=== PATIENT | male | born 1965 | race Caucasian/White ===

== ENCOUNTER 2016-08-12 21:08 | Observation (INO) | payer OTHER ==
[~2016-08-12] VITALS: Ht 175.3 cm; Wt 115.0 kg
[~2016-08-12 21:08] MED LIST: ASPI81TA3 PO; ATOR20TA38 PO; CARV12.579 PO; CEPH500C PO; DAPA10TA PO; FAMO-95 PO; GABA300C PO; GLIM4TAB PO; IPRA4AER INHALATION; LANT3I SC; LAS20 PO; LIRA0.6P SQ; LISI10TA2 PO; METF-480 PO; Nicotine (14 Mg/24 Hr) TRANSDERM; PRED10TA PO; UDROBDM PO
[2016-08-12 22:46] LABS: MODE ROOM AIR; MetHgb Venous 0.2 %; Sample Type Blood venous; Venous COHb 3.1 %; Venous Total Hemglobin 17.6 g/dl
[2016-08-12 22:47] LABS: ADD SCAN DIFF NO
[2016-08-12 22:49] LABS: BASOPHIL # 0.1 10^3/ul (0.0-0.1); BASOPHILS % 0.5 % (0.0-2.0); EOSINOPHILS # 0.2 10^3/ul (0.0-0.5); EOSINOPHILS % 2.1 % (0.0-7.0); HEMATOCRIT 51.7 % (42.0-52.0); HEMOGLOBIN 16.6 g/dl (14.0-18.0); LYMPHOCYTES # 2.3 10^3/ul (0.8-2.9); LYMPHOCYTES % 21.2 % (15.0-51.0); MEAN CORPUSCULAR HEMOGLOBIN 27.2 pg (29.0-33.0); MEAN CORPUSCULAR HGB CONC 32.1 g/dl (32.0-37.0); MEAN CORPUSCULAR VOLUME 84.8 fl (82.0-101.0); MONOCYTE # 0.7 10^3/ul (0.3-0.9); MONOCYTES % 6.5 % (0.0-11.0); NEUTROPHIL # 7.5 10^3/ul (1.6-7.5); NEUTROPHILS % 69.4 % (39.0-77.0); PLATELET COUNT 141 10^3/UL (140-415); RED CELL DISTRIBUTION WIDTH 14.3 % (11.5-14.5); WHITE BLOOD COUNT 10.8 10^3/ul (4.8-10.8)
[2016-08-12 22:56] LABS: MEAN PLATELET VOLUME 10.5 fl (7.4-10.4)
[2016-08-12 22:59] LABS: INR 0.91; PROTIME 12.3 Sec (12.2-14.2)
[2016-08-12 23:00] LABS: PARTIAL THROMBOPLASTIN TIME 21.4 Sec (25.0-35.0)
[2016-08-12 23:09] LABS: ALBUMIN 3.8 g/dl (3.3-4.9)
[2016-08-12 23:10] LABS: POTASSIUM 5.7 mmol/L (3.5-5.1)
[2016-08-12 23:12] LABS: ALBUMIN/GLOBULIN RATIO 1.11; BILIRUBIN,INDIRECT 0.3 mg/dl (0-1.1); BILIRUBIN,TOTAL 0.3 mg/dl (0.2-1.3); CREATININE 0.8 mg/dl (0.61-1.24); TOTAL PROTEIN 7.2 g/dl (6.1-8.1)
[2016-08-12 23:24] LABS: TROPONIN-I 0.022 ng/ml (0.00-0.12)
[2016-08-12 23:33] LABS: PLATELETS CLUMPS OCCASIONAL
[2016-08-13] VITALS (7 sets, daily range): BP systolic 136–147; BP diastolic 79–97; PULSE 70–102; RESP 18–20; Ht 175.3 cm; Wt 115.0 kg
[2016-08-13 00:17] LABS: POTASSIUM 4.5 mmol/L (3.5-5.1)
[2016-08-13 00:19] LABS: CREATININE 0.78 mg/dl (0.61-1.24)
[2016-08-13 00:20] LABS: CALCIUM 8.9 mg/dl (8.4-10.2)
--- NOTE | 2016-08-13 00:43 | RADRPT ---
PROCEDURE: XR Chest. CLINICAL INDICATION: Shortness of breath. TECHNIQUE: Single frontal chest x-ray. COMPARISON: 05/19/2016 FINDINGS: The cardiomediastinal silhouette is unremarkable. There is minimal bibasilar atelectasis.. There i s no pleural effusion. There is no pneumothorax. The osseous structures are unremarkable. IMPRESSION: Minimal bibasilar atelectasis. RPTAT: HMVK .Dwayne Altamirano MD, MD Date Time Electronically viewed and signed by .Dwayne Altamirano MD, on 08/13/2016 00:42 .K/
[2016-08-13] MEDS ORDERED: ALBUTEROL 0.5% (NEB) 2.5 MG/0.5 ML AMP NEB STA (00:51)
[2016-08-13] MEDS ORDERED: ONDANSETRON 4 MG INJ IV PRN (01:30)
[2016-08-13] MEDS ORDERED: ACETAMINOPHEN 325 MG TAB PO PRN ×2 (01:30→05:30)
[2016-08-13] MEDS ORDERED: FAMOTIDINE 20 MG TAB PO ONE (01:30)
[2016-08-13 03:16] LABS: D-DIMER 367.57 ng/ml (<460)
--- NOTE | 2016-08-13 04:14 | ERA ---
ER Documentation Chief Complaint Date/Time DATE: 08/13/16 TIME: 04:09 Chief Complaint shortness of breath x 1 month, worse today HPI 51-year-old male with a history of diabetes and CHF with an EF of 25-30% presenting today for progressively worsening shortness of breath for the past month. He denies any associated chest pain, fevers, chills. About 1 month ago he had bronchitis which has since improved. He is unable to sleep secondary to his dyspnea. He is unable to lay flat as his symptoms get worse. He takes Lasix intermittently as needed. ROS All systems reviewed and are negative except as per history of present illness. Medications Home Meds Active Scripts [Nicotine (14 Mg/24 Hr)] 1 PATCH PATCH No Conflict Check, 1 PATCH TRANSDERM DAILY for 30 Days Prov:MARTA KENNY MD 05/20/16 Aspirin (Aspirin) 81 Mg Chew, 81 MG PO DAILY for 30 Days, TAB 1 Refill Prov:MARTA KENNY MD 05/20/16 Guaifenesin-Dextromethorphan* (Robitussin* DM) 100MG/10MG/5ML Syrup, 5 ML PO Q6H Y for COUGH, #120 ML Prov:MARTA KENNY MD 05/20/16 Furosemide (Lasix) 20 Mg Tab, 20 MG PO BID, #60 TAB Prov:MARTA KENNY MD 05/20/16 Cephalexin* (Cephalexin*) 500 Mg Capsule, 500 MG PO Q8, #15 CAP Prov:MARTA KENNY MD 05/20/16 Albuterol/Ipratropium* (Combivent Respimat*) 20-100 Mcg/Inh - 4 Gm Aer.w.adap, 1 PUFF INHALATION QID, #1 INHALER Prov:MARTA KENNY MD 05/20/16 Prednisone* (Prednisone*) 10 Mg Tab, 10 MG PO BID, #14 TAB Prov:MARTA KENNY MD 05/20/16 Atorvastatin Calcium* (Atorvastatin Calcium*) 20 Mg Tab, 20 MG PO HS for 30 Days , TAB 4 Refills Prov:OC PLATA S. 09/02/15 Gabapentin* (Neurontin*) 300 Mg Cap, 300 MG PO TID for 30 Days, CAP 4 Refills Prov:OC PLATA S. 09/02/15 Famotidine* (Pepcid* AC) 20 Mg Tab, 20 MG PO DAILY for 30 Days, TAB 4 Refills Prov:OC PLATA S. 09/02/15 Reported Medications Insulin Glargine* (Lantus*) 100 Unit/Ml Soln, 40 UNIT SC QHS, #1 VIAL 05/19/16 Dapagliflozin Propanediol (Farxiga) 10 Mg Tablet, 10 MG PO DAILY, #30 TAB 02/12/16 Lisinopril* (Lisinopril*) 10 Mg Tablet, 10 MG PO DAILY, #30 TAB 02/12/16 Carvedilol* (Carvedilol*) 12.5 Mg Tablet, 12.5 MG PO BID, #60 TAB 02/12/16 Liraglutide (Victoza 2-Greg) 0.6 Mg/0.1 Ml Pen.injctr, 1.2 MG SQ DAILY, SYR 08/31/15 Metformin* (Glucophage*) 850 Mg Tablet, 850 MG PO WITH MEALS, #90 TAB 08/31/15 Glimepiride* (Glimepiride*) 4 Mg Tablet, 4 MG PO WITH BREAKFAST, TAB 08/31/15 Allergies Allergies: Coded Allergies: No Known Drug Allergies (Verified Allergy, Unknown, 08/12/16) PMhx/Soc History of Surgery: No Anesthesia Reaction: No Hx Neurological Disorder: No Hx Respiratory Disorders: No Hx Cardiac Disorders: Yes (CHF) Hx Psychiatric Problems: No Hx Miscellaneous Medical Probl: No Hx Alcohol Use: Yes (special occasions (once a week), 3 weeks ago was the last time he drank ) Hx Substance Use: No Hx Tobacco Use: Yes (cigarettes, this morning, current every day smoker 1 pack a day ) Smoking Status: Current every day smoker FmHx Family History: No diabetes Physical Exam Vitals Vital Signs Date Time Temp Pulse Resp B/P Pulse Ox O2 Delivery O2 Flow Rate FiO2 08/12/16 21:11 98.1 103 20 137/65 98 Physical Exam Const: Well-appearing, nontoxic, no distress Head: Atraumatic Eyes: Normal Conjunctiva ENT: Normal External Ears, Nose and Mouth. Hoarse voice. Neck: Full range of motion..~ No meningismus. No JVD. Resp: Clear to auscultation bilaterally. No wheezing or rales Cardio: Regular rate and rhythm, no murmurs. 2+ distal pulses Abd: Soft, non tender, non distended. Normal bowel sounds Skin: No petechiae or rashes Back: No midline or flank tenderness Ext: No cyanosis, or edema. No calf tenderness bilaterally. Negative Homans sign. Neur: Awake and alert and oriented 3, cranial nerves intact, moving all extremities Psych: Normal Mood and Affect Result Diagram: 08/12/16222908/12/162229 Results 24 hrs Laboratory Tests Test 08/12/16 00:00 08/12/16 22:18 08/12/16 22:30 08/13/16 00:00 Anion Gap 16 19 Blood Urea Nitrogen 17mg/dl 18mg/dl Calcium Level 8.9mg/dl 9.0mg/dl Carbon Dioxide Level 26mmol/L 23mmol/L Chloride Level 100mmol/L 101mmol/L Creatinine 0.78mg/dl 0.80mg/dl Glucose Level 196mg/dl 258mg/dl Potassium Level 4.5mmol/L 5.7mmol/L Sodium Level 137mmol/L 137mmol/L Tray Test N/A Arterial Blood Date Drawn 08/12/2016 10:35:08 PM Arterial Blood Gas Puncture Site VENOUS LINE Blood Gas Modality ROOM AIR Blood Gas Notified Time 08/12/2016 10:46:34 PM Blood Gas Notified Whom AA Blood Gas Specimen Source Blood venous Blood Gas Temperature 37.0C Carboxyhemoglobin 3.1% FiO2 21.0% Venous Blood Base Excess 1.9mmol/L Venous Blood HCO3 26.5mmol/L Venous Blood Methemoglobin 0.2% Venous Blood Oxygen Saturation 90.0mmHG Venous Blood Oxyhemoglobin 87.0% Venous Blood Total Hemoglobin 17.6g/dl Venous Blood pCO2 (Temp Corrected) 41.3mmHG Venous Blood pH 7.425 Venous Blood pO2 (Temp Corrected) 54.5mmHG Activated Partial Thromboplast Time 21.4Sec Alanine Aminotransferase (ALT/SGPT) 21IU/L Albumin 3.8g/dl Albumin/Globulin Ratio 1.11 Alkaline Phosphatase 61IU/L Aspartate Amino Transf (AST/SGOT) 43IU/L Basophils # 0.110^3/ul Basophils % 0.5% Clumped Platelets OCCASIONAL D-Dimer 367.57ng/ml D-Dimer Comment Direct Bilirubin 0.00mg/dl Eosinophils # 0.210^3/ul Eosinophils % 2.1% Globulin 3.40g/dl Hematocrit 51.7% Hemoglobin 16.6g/dl INR International Normalized Ratio 0.91 Indirect Bilirubin 0.3mg/dl Lymphocytes # 2.310^3/ul Lymphocytes % 21.2% Mean Corpuscular Hemoglobin 27.2pg Mean Corpuscular Hemoglobin Concent 32.1g/dl Mean Corpuscular Volume 84.8fl Mean Platelet Volume 10.5fl Monocytes # 0.710^3/ul Monocytes % 6.5% Neutrophils # 7.510^3/ul Neutrophils % 69.4% Nucleated Red Blood Cells # 0.010^3/ul Nucleated Red Blood Cells % 0.0/100WBC Platelet Count 87265^3/UL Prothrombin Time 12.3Sec Prothrombin Time Ratio 1.0 Red Blood Count 6.1010^6/ul Red Cell Distribution Width 14.3% Total Bilirubin 0.3mg/dl Total Protein 7.2g/dl Troponin I 0.022ng/ml White Blood Count 10.810^3/ul B-Type Natriuretic Peptide 141PG/ML Current Medications Medications (Trade) Dose Ordered Sig/Josie Route PRN Reason Start Time Stop Time Status Last Admin Dose Admin Albuterol (Proventil 0.5% (Neb)) 5 mg ONCE STAT NEB 08/13/16 00:51 08/13/16 00:53 DC 08/13/16 01:22 Procedures/MDM EMERGENT LABS AND DIAGNOSTIC STUDIES: Lab Results above were reviewed and interpreted by me. CBC, CMP, troponin were unremarkable VBG unremarkable D-dimer within normal limits 12-lead EKG was interpreted by Mariela Sheikh MD: Normal Sinus Rhythm Normal axis Normal intervals Nonspecific ST, T-wave changes No acute ST or T wave changes suggestive of acute ischemia or STEMI. Radiology Results as interpreted by Radiology below were reviewed by SMil Sheikh MD: Chest x-ray shows no acute abnormalities Initial Nursing notes reviewed. Previous Medical Records requested via the Electronic Health Record. EMERGENCY DEPARTMENT COURSE / MEDICAL DECISION MAKING: Patient is presenting with worsening dyspnea of unknown etiology. His vitals are stable and he has no evidence of hypoxia. Differential includes but is not limited to CHF exacerbation, COPD, pulmonary embolism, bronchitis, sleep apnea. Workup is not consistent with CHF exacerbation or COPD. His d-dimer is within normal limits, so pulmonary embolism is lower on my differential. It is possible that the patient has been having reflux with possible subsequent lung injury. Given the patient's distress and difficulty sleeping, I believe he needs further workup for his dyspnea. I will admit him for observation overnight. I spoke with Dr. Soto, who accepted him for admission. Accepting Care Team: Current data and ongoing care discussed. Time: Time of admission Primary Provider: Dr. Soto Consulting: None Outstanding Data: none Departure Diagnosis: Primary Impression: Dyspnea, unspecified Condition: ROHITH Tomlin MD Aug 13, 2016 04:14
--- NOTE | 2016-08-13 05:02 | HP ---
Date/Time of Note Date/Time of Note DATE: 08/13/16 TIME: 05:00 Assessment/Plan VTE Prophylaxis VTE Prophylaxis Intervention: ambulation Lines/Catheters IV [facility]from [facility] Saline Lock Urinary Cath still in place: No Assessment/Plan Assessment/Plan 1) Dyspnea, unspecified . . . based on CXR and physical exam, it does not seem that fluid overload is the cause. Possibly from inflammation associated with his recent bronchitis. Possibly from acid reflux, but that often comes with more of a cough - Consider PFTs and see if bronchodilators help relieve his symptoms - Consider a blast of steroids - GI Cocktail, may help relieve his symptoms if acid is a factor. If it is not an obvious help during the day, try a dose at bedtime and see if it gives him any relief. 2) GERD - H2 Fede - Outpatient EGD, unless indicated this stay, as patient has had symptoms for years without evaluation 3) CHF - stable - Continue home medications. 4) DM2 with hyperglycemia and peripheral neuropathy - HgbA1c, AccuChek AC & HS - Carb Control Diet - Lantus and Sliding Scale - Increase Neurontin to 600 mg TID to help with peripheral nerve pain. - Patient was educated about the multiple ill-effects that DM can have on the body and the importance of controlling sugars, getting regular doctor visits with labs and to do nightly feet check and to always wear shoes. 5) Tobacco Dependence - Encourage patient to become a non-smoker - Nicotine Patch HPI/ROS Admit Date/Time Admit Date/Time Aug 13, 2016 at 01:08 Hx of Present Illness Chief Complaint shortness of breath x 1 month, worse today HPI 51-year-old male with a history of diabetes and CHF with an EF of 25-30% on his most recent Echo. The previous echo, fom about a year ago, showed that his EF was 35%. Today, he presents for progressively worsening shortness of breath for the past month. He denies any associated chest pain, fevers, chills. About 1 month ago he had bronchitis which has since improved. He is unable to sleep secondary to his dyspnea. It wakes him up every 10 to 15 minutes. He is unable to lay flat as his symptoms get worse. He takes Lasix intermittently as needed. He admits to having heartburn and acid reflux. He smokes 1 ppd since he was 20. He denies asthma, pneumonia or seasonal allergies, but he has had bronchitis. He also mentions that he has burning and numbness in his feet. He admits he is a Diabetic and that he takes Lantus 40 Units daily. He has had swelling in his legs in the past, but not much now. He dose not have much of a cough or wheeze. He denies headache, dizziness and vision changes. ER Course per ER Physician: Patient is presenting with worsening dyspnea of unknown etiology. His vitals are stable and he has no evidence of hypoxia. Differential includes but is not limited to CHF exacerbation, COPD, pulmonary embolism, bronchitis, sleep apnea. Workup is not consistent with CHF exacerbation or COPD. His d-dimer is within normal limits, so pulmonary embolism is lower on my differential. It is possible that the patient has been having reflux with possible subsequent lung injury. Given the patient's distress and difficulty sleeping, I believe he needs further workup for his dyspnea. I will admit him for observation overnight. I spoke with Dr. Soto, who accepted him for admission. ROS Constitutional: fatigue, No diaphoresis, No febrile, No nausea Eyes: No no complaints ENT: No no complaints Respiratory: cough (minimal, dry), shortness of breath, No pain, No pleuritic pain, No sputum, No wheezing Cardiovascular: orthopenea, paroxysmal nocturnal dyspnea, No chest pain, No edema, No palpitations Gastrointestinal: No diarrhea, No nausea, No pain, No vomiting Genitourinary: No dysuria, No hematuria Musculoskeletal: No back pain, No neck pain, No other (generalized body aches) Skin: No pruritis, No rash Neurologic: No confusion, No headache, No syncope Endocrine: No polydypsia, No polyuria Lymphatic: No adenopathy, No tender nodes Immunologic: No pruritis, No rhinitis PMH/Family/Social Past Medical History Medical History: congestive heart failure, diabetes, GERD Past Surgical History Past Surgical Hx: no surgical history Social History Alcohol Use: occasionally Smoking Status: Current every day smoker Drug Use: none Exam/Review of Systems Vital Signs Vitals Vital Signs Date Time Temp Pulse Resp B/P Pulse Ox O2 Delivery O2 Flow Rate FiO2 08/13/16 04:00 97.6 93 20 136/84 95 Room Air 08/13/16 01:22 21 Exam Constitutional: alert, oriented, well developed Psych: no complaints Head: atraumatic, normocephalic Eyes: EOMI, nl sclera ENMT: mucosa pink and moist, nl external ears & nose, nl nasal mucosa & septum Neck: supple, No other (lymphadenopathy) Respiratory: clear to auscultation (but decreased airflow in the bases. Kyara , rhonchi or wheezes.) Cardiovascular: nl pulses (Radial pulsed +2/4 and DP pulses +1/4 and equal bilaterally.), regular rate and rhythm Gastrointestinal: bowel sounds (Rounded abdome, difficult to palpate the internal organs. No appreciable HSM or pulsatile massesnormoactive), non-tender , soft Musculoskeletal: nl extremities to inspection Extremities: edema, No calf tenderness, No clubbing, No cyanosis, No pitting pedal edema Neurological: [employer] II-XII intact (grossly), nl mental status, nl speech, nl strength Skin: nl turgor (Normal moisture and temperature. No visible rash.) Lymph: nl lymph nodes (cervical) Labs Result Diagram: 08/12/16222908/12/162229 Medications Medications Home Meds Active Scripts [Nicotine (14 Mg/24 Hr)] 1 PATCH PATCH No Conflict Check, 1 PATCH TRANSDERM DAILY for 30 Days Prov:MARTA KENNY MD 05/20/16 Aspirin (Aspirin) 81 Mg Chew, 81 MG PO DAILY for 30 Days, TAB 1 Refill Prov:MARTA KENNY MD 05/20/16 Guaifenesin-Dextromethorphan* (Robitussin* DM) 100MG/10MG/5ML Syrup, 5 ML PO Q6H Y for COUGH, #120 ML Prov:MARTA KENNY MD 05/20/16 Furosemide (Lasix) 20 Mg Tab, 20 MG PO BID, #60 TAB Prov:MARTA KENNY MD 05/20/16 Cephalexin* (Cephalexin*) 500 Mg Capsule, 500 MG PO Q8, #15 CAP Prov:MARTA KENNY MD 05/20/16 Albuterol/Ipratropium* (Combivent Respimat*) 20-100 Mcg/Inh - 4 Gm Aer.w.adap, 1 PUFF INHALATION QID, #1 INHALER Prov:MARTA KENNY MD 05/20/16 Prednisone* (Prednisone*) 10 Mg Tab, 10 MG PO BID, #14 TAB Prov:MARTA KENNY MD 05/20/16 Atorvastatin Calcium* (Atorvastatin Calcium*) 20 Mg Tab, 20 MG PO HS for 30 Days , TAB 4 Refills Prov:CARIEOC S. 09/02/15 Gabapentin* (Neurontin*) 300 Mg Cap, 300 MG PO TID for 30 Days, CAP 4 Refills Prov:CHRIS PLATAP S. 09/02/15 Famotidine* (Pepcid* AC) 20 Mg Tab, 20 MG PO DAILY for 30 Days, TAB 4 Refills Prov:CHRIS PLATAP S. 09/02/15 Reported Medications Insulin Glargine* (Lantus*) 100 Unit/Ml Soln, 40 UNIT SC QHS, #1 VIAL 05/19/16 Dapagliflozin Propanediol (Farxiga) 10 Mg Tablet, 10 MG PO DAILY, #30 TAB 02/12/16 Lisinopril* (Lisinopril*) 10 Mg Tablet, 10 MG PO DAILY, #30 TAB 02/12/16 Carvedilol* (Carvedilol*) 12.5 Mg Tablet, 12.5 MG PO BID, #60 TAB 02/12/16 Liraglutide (Victoza 2-Greg) 0.6 Mg/0.1 Ml Pen.injctr, 1.2 MG SQ DAILY, SYR 08/31/15 Metformin* (Glucophage*) 850 Mg Tablet, 850 MG PO WITH MEALS, #90 TAB 08/31/15 Glimepiride* (Glimepiride*) 4 Mg Tablet, 4 MG PO WITH BREAKFAST, TAB 08/31/15 Procedures Procedures Laboratory Tests Test 08/12/16 00:00 08/12/16 22:18 08/12/16 22:30 08/13/16 00:00 Anion Gap 16 19 Blood Urea Nitrogen 17mg/dl 18mg/dl Calcium Level 8.9mg/dl 9.0mg/dl Carbon Dioxide Level 26mmol/L 23mmol/L Chloride Level 100mmol/L 101mmol/L Creatinine 0.78mg/dl 0.80mg/dl Glucose Level 196mg/dl 258mg/dl Potassium Level 4.5mmol/L 5.7mmol/L Sodium Level 137mmol/L 137mmol/L Tray Test N/A Arterial Blood Date Drawn 08/12/2016 10:35:08 PM Arterial Blood Gas Puncture Site VENOUS LINE Blood Gas Modality ROOM AIR Blood Gas Notified Time 08/12/2016 10:46:34 PM Blood Gas Notified Whom AA Blood Gas Specimen Source Blood venous Blood Gas Temperature 37.0C Carboxyhemoglobin 3.1% FiO2 21.0% Venous Blood Base Excess 1.9mmol/L Venous Blood HCO3 26.5mmol/L Venous Blood Methemoglobin 0.2% Venous Blood Oxygen Saturation 90.0mmHG Venous Blood Oxyhemoglobin 87.0% Venous Blood Total Hemoglobin 17.6g/dl Venous Blood pCO2 (Temp Corrected) 41.3mmHG Venous Blood pH 7.425 Venous Blood pO2 (Temp Corrected) 54.5mmHG Activated Partial Thromboplast Time 21.4Sec Alanine Aminotransferase (ALT/SGPT) 21IU/L Albumin 3.8g/dl Albumin/Globulin Ratio 1.11 Alkaline Phosphatase 61IU/L Aspartate Amino Transf (AST/SGOT) 43IU/L Basophils # 0.110^3/ul Basophils % 0.5% Clumped Platelets OCCASIONAL D-Dimer 367.57ng/ml D-Dimer Comment Direct Bilirubin 0.00mg/dl Eosinophils # 0.210^3/ul Eosinophils % 2.1% Globulin 3.40g/dl Hematocrit 51.7% Hemoglobin 16.6g/dl INR International Normalized Ratio 0.91 Indirect Bilirubin 0.3mg/dl Lymphocytes # 2.310^3/ul Lymphocytes % 21.2% Mean Corpuscular Hemoglobin 27.2pg Mean Corpuscular Hemoglobin Concent 32.1g/dl Mean Corpuscular Volume 84.8fl Mean Platelet Volume 10.5fl Monocytes # 0.710^3/ul Monocytes % 6.5% Neutrophils # 7.510^3/ul Neutrophils % 69.4% Nucleated Red Blood Cells # 0.010^3/ul Nucleated Red Blood Cells % 0.0/100WBC Platelet Count 10306^3/UL Prothrombin Time 12.3Sec Prothrombin Time Ratio 1.0 Red Blood Count 6.1010^6/ul Red Cell Distribution Width 14.3% Total Bilirubin 0.3mg/dl Total Protein 7.2g/dl Troponin I 0.022ng/ml White Blood Count 10.810^3/ul B-Type Natriuretic Peptide 141PG/ML PROCEDURE: XR Chest. CLINICAL INDICATION: Shortness of breath. TECHNIQUE: Single frontal chest x-ray. COMPARISON: 05/19/2016 FINDINGS: The cardiomediastinal silhouette is unremarkable. There is minimal bibasilar atelectasis.. There is no pleural effusion. There is no pneumothorax. The osseous structures are unremarkable. IMPRESSION: Minimal bibasilar atelectasis 2-lead EKG was interpreted by Mariela Sheikh MD: Normal Sinus Rhythm Normal axis Normal intervals Nonspecific ST, T-wave changes No acute ST or T wave changes suggestive of acute ischemia or STEMI. JORGITO SOTO DO Aug 13, 2016 05:02
[2016-08-13] MEDS ORDERED: LORAZEPAM 0.5 MG TAB PO PRN (05:30)
[2016-08-13] MEDS ORDERED: NACL 0.9% 3 ML SYG IV SCH (05:30)
[2016-08-13] MEDS ORDERED: morphine 2 MG INJ IV PRN (05:30)
[2016-08-13] MEDS ORDERED: ONDANSETRON 4 MG TAB PO PRN (05:30)
[2016-08-13] MEDS ORDERED: LIDOCAINE/MYLANTA 40 ML BTL PO ONE (05:30)
[2016-08-13] MEDS ORDERED: NITROGLYCERIN (SL) 0.4 MG TAB SL PRN (05:30)
[2016-08-13] MEDS ORDERED: GLUCAGON 1 MG INJ IM PRN (06:00)
[2016-08-13] MEDS ORDERED: GLUCOSE GEL 15 GRAM TUBE BUCCAL PRN (06:00)
[2016-08-13] MEDS ORDERED: GLUCOSE GEL 15 GRAM TUBE PO PRN ×2 (06:00)
[2016-08-13] MEDS ORDERED: DEXTROSE 50% 50 ML SYRINGE IV PRN ×2 (06:00)
[2016-08-13] MEDS ORDERED: GLIMEPIRIDE 4 MG TAB PO SCH (08:00)
[2016-08-13] MEDS ORDERED: INSULIN GLARGINE [LANtus] 3 ML PEN SC SCH ×2 (08:00→21:00)
[2016-08-13] MEDS: GABAPENTIN 300 MG CAP PO SCH ×2 (08:41→12:29)
[2016-08-13] MEDS: INSULIN ASPART [NOVOLOG] 3 ML PEN SC SCH ×2 (08:44→13:24)
[2016-08-13] MEDS ORDERED: NICOTINE (14 MG/24 HR) PATCH TRANSDERM SCH (09:00)
[2016-08-13] MEDS ORDERED: LISINOPRIL 10 MG TAB PO SCH (09:00)
[2016-08-13] MEDS ORDERED: NON-FORMULARY/PATIENT OWN MED (Albuterol/Ipratropium* (Combivent Respimat*) 1 PUFF) INHALATION SCH (09:00)
[2016-08-13] MEDS ORDERED: FAMOTIDINE 20 MG TAB PO SCH (09:00)
[2016-08-13] MEDS ORDERED: NON-FORMULARY/PATIENT OWN MED (Liraglutide (Victoza 2-Pak) 1.2 MG) XX SCH (09:00)
[2016-08-13] MEDS ORDERED: NON-FORMULARY/PATIENT OWN MED (Dapagliflozin Propanediol (Farxiga) 10 MG) XX SCH (09:00)
[2016-08-13] MEDS ORDERED: ASPIRIN 81 MG TAB PO SCH (09:00)
[2016-08-13] MEDS ORDERED: predniSONE 10 MG TAB PO SCH (09:00)
[2016-08-13] MEDS ORDERED: NICOTINE TRANSDERM SCH (09:00)
[2016-08-13] MEDS: IPRATROPIUM (HFA) 12.9 GM INHALER INH SCH ×2 (09:04→12:30)
[2016-08-13] MEDS: ALBUTEROL HFA 8 GM INHALER INH SCH ×2 (09:05→12:29)
--- NOTE | 2016-08-13 13:42 | PDOCDIS ---
Discharge Instructions DIAGNOSIS Discharge Diagnosis: Acute hypoxic respiratory failure. CONDITION Patient Condition: Stable HOME CARE INSTRUCTIONS: Special Diet: CARB CONTROLLED FOLLOW UP/APPOINTMENTS Appointments Johnny Beaulieu MD Specialty: Internal Medicine Office Address: [address] [place], [place] [id number] Office OTHER ORDERS: Other Orders: 1. Resume home medications. 2. Follow a low-cholesterol, low-sodium, carbohydrate controlled diet. 3. Resume activities as tolerated. 4. Follow-up with your primary care physician 2 weeks. If you do not have a primary care physician, please call Dr. Johnny Beaulieu's office. 5. Please call 911 or go to the nearest emergency room if you have any chest pain or shortness of breath. 6. Avoid nicotine use. FAZAL MACKEY NP Aug 13, 2016 13:42
[2016-08-13] MEDS ORDERED: NA POLYST SULFON 15 GM/60 ML BTL PO ONE (14:30)
--- NOTE | 2016-08-13 19:54 | DS ---
DATE OF ADMISSION: 08/13/2016 DATE OF DISCHARGE: 08/13/2016 TIME OF ADMISSION: 4:14 a.m. TIME OF DISCHARGE: 1500 DISCHARGE DIAGNOSES: 1. Acute hypoxic respiratory failure, resolved. 2. Gastroesophageal reflux disease. 3. Congestive heart failure, systolic dysfunction. Compensated. 4. Ischemic cardiomyopathy with ejection fraction of 25% to 30%. 5. Type 2 diabetes mellitus. Hemoglobin A1c 9.4. 6. Diabetic neuropathy. 7. Nicotine use. 8. Morbid obesity. 9. Possible underlying obstructive sleep apnea. 10. Hyperkalemia, resolved. 11. Essential hypertension. REASON FOR ADMISSION: Dyspnea. HOSPITAL COURSE: This is a 51-year-old male with multiple comorbidities including cardiomyopathy with ejection fraction of 25% to 30%, essential hypertension, dyslipidemia, DM, nicotine use and obesity who came to the emergency room with a chief complaint of shortness of breath that has been going on for the past 1 month that has gotten worse just prior to the patient's arrival to emergency room. The patient continues to smoke despite his clinical condition. Provided the patient's history of present illness and his comorbidities, a clinical decision was made to admit the patient to inpatient setting to have him further evaluated. The patient was admitted to inpatient telemetry floor. The patient was started on his cardiac medications. As per the patient, he was not taking some of his cardiac medications at home because he ran out of those, specifically Lasix. Nevertheless, the patient was not noticed to have any significant congestive heart failure exacerbation. The patient was maintained on supplemental oxygen. The patient responded well to the treatment strategy. The patient has underlying type 2 diabetes mellitus. His hemoglobin A1c was found to be 9.4, indicating poor blood glucose control over the past few weeks. The patient follows up with a swine extension field specialist as outpatient. The patient was continued on sliding scale insulin with fairly well-controlled blood sugars. The patient has underlying essential hypertension. The patient was maintained on antihypertensives. The patient's blood pressures were fairly well controlled. The patient has underlying cardiomyopathy. The patient was maintained on beta blockers and COURTNEY inhibitors for the same. The patient continues to smoke despite his clinical condition. The patient was advised multiple times on the importance of quitting the use of nicotine. The patient is also a longstanding smoker. The patient most probably has underlying COPD. The patient was maintained on inhaled bronchodilators. The patient will be discharged home on maintenance inhalers since the patient most probably has underlying COPD. The patient had no evidence of any COPD exacerbation. Hence the patient does not need any steroid taper upon discharge. The patient had hyperkalemia on his repeat blood draw from the lab. Etiology of this remains unclear. However, the patient was treated with a single dose of potassium exchange resin before discharge. The patient had a stable hospital course. The patient is stable to be discharged home. The patient denied any complaints at the time of discharge. DISCHARGE DISPOSITION AND PLAN: The patient will be discharged home today. The patient was instructed to resume his home medications. He was instructed to follow a low-cholesterol, low-sodium, carbohydrate controlled diet. He was instructed to resume activities as tolerated. He was instructed to follow up with his primary care physician in 2 weeks and if he does not have a primary care physician to please call Dr. Johnny Beaulieu's office. The patient was instructed to call 911 or go to the nearest emergency room if he has any chest pain or shortness of breath. He was instructed to avoid nicotine use. The patient verbalized understanding of his discharge instructions. CONDITION AT DISCHARGE: Stable. DISCHARGE MEDICATIONS: 1. Combivent 20/100 mcg per inhalation 1 puff inhalation q.i.d. p.r.n. shortness of breath. 2. Aspirin 81 mg p.o. daily. 3. Atorvastatin 20 mg p.o. at bedtime. 4. Coreg 12.5 mg p.o. b.i.d. 5. Famotidine 20 mg p.o. daily. 6. Lasix 20 mg p.o. b.i.d. 7. Gabapentin 300 mg p.o. t.i.d. 8. Glimepiride 4 mg p.o. with breakfast. 9. Lantus insulin 40 units subcutaneous at bedtime. 10. Liraglutide 1.2 mg subcutaneous daily. 11. Lisinopril 10 mg p.o. daily. 12. Metformin 850 mg p.o. b.i.d. with meals. PERTINENT LABORATORY AND DIAGNOSTIC DATA: 1. Chest x-ray. Minimal bibasilar atelectasis. 2. Latest CBC: WBC 10.8, hemoglobin 16.6, hematocrit 51.7, platelet count 141. 3. Latest BMP: Sodium 137, potassium 5.3, chloride 101, carbon dioxide 23, anion gap 19, BUN 18, creatinine 0.80, glucose 250, calcium 9.0. The case and management of this patient was fully discussed with Dr. Couch. Approximately 35 minutes was spent on coordinating the discharge on this patient. FAZAL COUCH MD, AM/NTS Conf#: [id number] DID#: [id number] MTDD
[2016-08-13] MEDS ORDERED: ATORVASTATIN 20 MG TAB PO SCH (21:00)
[2016-08-14] MEDS ORDERED: ACCUCHECK XX SCH ×2 (02:00)
== END 2016-08-13 16:15 | disposition home or self-care (01) ==
LOC: E/R 21:08 → MS4 08-13 01:08
PROVIDERS: ADMIT Family Medicine; ATTEND Family Medicine
DX: J96.01 Acute respiratory failure with hypoxia (principal); K21.9 Gastro-esophageal reflux disease without esophagitis; I50.20 Unspecified systolic (congestive) heart failure; E11.65 Type 2 diabetes mellitus with hyperglycemia; E11.42 Type 2 diabetes mellitus with diabetic polyneuropathy; Z79.4 Long term (current) use of insulin; F17.200 Nicotine dependence, unspecified, uncomplicated; I10 Essential (primary) hypertension; G47.33 Obstructive sleep apnea (adult) (pediatric); E66.01 Morbid (severe) obesity due to excess calories; Z68.37 Body mass index [BMI] 37.0-37.9, adult
CPT/HCPCS: 36415; 71010; 80048; 80053; 82803; 82962; 83036; 83880; 84132; 84484; 85025; 85378; 85610; 85730; 93005; 94664; 96372; J1815; J7512; Z7500; Z7502; Z7610; G0378

== ENCOUNTER 2017-11-24 03:47 | Inpatient (IN) | END 2017-12-01 17:11 | disposition home or self-care (01) | DRG 227 ==

== ENCOUNTER 2018-03-07 17:01 | Inpatient (IN) | END 2018-03-08 12:53 | disposition home or self-care (01) | DRG 293 ==

== ENCOUNTER 2018-03-30 15:14 | Emergency (ER) | END 2018-03-30 18:13 | disposition home or self-care (01) ==